=== PATIENT | male | born 1940 | race Asian ===

== ENCOUNTER 2024-01-06 12:20 | Inpatient (IN) | payer MEDICAID ==
[2024-01-06] VITALS (8 sets, daily range): BP systolic 104–152; PULSE 90–122; RESP 16–30; TEMP 97.8–99.1; O2SAT 94–100
[~2024-01-06] VITALS: Ht 165.1 cm; Wt 64.0 kg
[2024-01-06 13:29] LABS: BASOPHILS # (AUTO) 0.1 K/uL (0.0-0.2); BASOPHILS % (AUTO) 0.6 % (0.0-2.0); EOSINOPHILS # (AUTO) 0.1 K/uL (0.0-0.4); EOSINOPHILS % (AUTO) 1.3 % (0.0-4.0); HEMATOCRIT 35.4 % (36-54); HEMOGLOBIN 12.2 g/dL (14.0-18.0); LYMPHOCYTES # (AUTO) 0.9 K/uL (1.0-5.5); LYMPHOCYTES % (AUTO) 9.7 % (20.5-51.5); MEAN CORPUSCULAR HEMOGLOBIN 30 pg (27-31); MEAN CORPUSCULAR HGB CONC 35 % (32-36); MEAN CORPUSCULAR VOLUME 87 fL (79.0-98.0); MONOCYTES # (AUTO) 0.9 K/uL (0.0-1.0); MONOCYTES % (AUTO) 9.6 % (1.7-9.3); NEUTROPHILS # (AUTO) 7.1 K/uL (1.8-7.7); NEUTROPHILS % (AUTO) 78.8 % (40.0-70.0); PLATELET COUNT (AUTO) 245 K/uL (130-430); RED BLOOD CELL COUNT(AUTO) 4.08 MIL/uL (4.2-6.2); RED CELL DISTRIBUTION WIDTH 13.8 % (9.0-15.0)
[2024-01-06 13:45] LABS: ANION GAP 8 (5-15); CARBON DIOXIDE 26 mmol/L (23-29); CHLORIDE 93 mmol/L (98-107); CREATININE 1.25 mg/dL (0.55-1.30); GLUCOSE 221 mg/dL (74-106); POTASSIUM 4.5 mmol/L (3.5-5.1); SODIUM SERUM 127 mmol/L (136-145); UREA NITROGEN, BLOOD 14 mg/dL (8-21)
[2024-01-06] MEDS ORDERED: NACL 0.9% 1,000 ML IV ONE (13:45)
[2024-01-06] MEDS: ACETAMINOPHEN 325 MG TABLET PO ONE (13:45)
[2024-01-06 13:56] LABS: BILIRUBIN,DIRECT 0.2 mg/dL (0.0-0.3); TOTAL BILIRUBIN 0.6 mg/dL (0.0-1.0); TOTAL PROTEIN, SERUM 7.5 g/dL (6.4-8.3)
[2024-01-06] MEDS ORDERED: HEPARIN 25,000 UNITS/D5W 250ML 250 ML IV ONE (14:15)
[2024-01-06] MEDS ORDERED: HEPARIN SODIUM,PORCINE 2000 UNITS/0.4 ML BOLUS IVP PRN (15:00)
[2024-01-06] MEDS ORDERED: HEPARIN SODIUM,PORCINE 3000 UNITS/0.6 ML BOLUS IVP PRN (15:00)
[2024-01-06] MEDS: HEPARIN SODIUM,PORCINE 5,000 UNITS/ML VIAL IVP ONE (15:36)
[2024-01-06] MEDS: HEPARIN 25,000 UNITS/D5W 250ML 250 ML IV SCH (15:41)
[2024-01-06] MEDS: ASPIRIN 325 MG TABLET PO ONE (15:48)
[2024-01-06] MEDS: CARVEDILOL 3.125 MG TABLET (COREG) PO SCH (20:45)
[2024-01-07] VITALS (23 sets, daily range): BP systolic 89–148; PULSE 75–116; RESP 14–30; TEMP 97.9–98.7; O2SAT 92–98
[2024-01-07 05:11] LABS: ALANINE AMINOTRANSFERASE 23 U/L (12-78); ALBUMIN 2.9 g/dL (3.4-4.8); ANION GAP 6 (5-15); ASPARTATE AMINOTRANSFERASE 36 U/L (10-37); CALCIUM 8.8 mg/dL (8.4-11.0); CARBON DIOXIDE 29 mmol/L (23-29); CHLORIDE 94 mmol/L (98-107); CREATININE 1.14 mg/dL (0.55-1.30); GLUCOSE 173 mg/dL (74-106); POTASSIUM 4.5 mmol/L (3.5-5.1); SODIUM SERUM 129 mmol/L (136-145); TOTAL BILIRUBIN 0.9 mg/dL (0.0-1.0); TOTAL PROTEIN, SERUM 7.6 g/dL (6.4-8.3); UREA NITROGEN, BLOOD 15 mg/dL (8-21)
[2024-01-07 05:19] LABS: BASOPHILS % (AUTO) 0.3 % (0.0-2.0); EOSINOPHILS # (AUTO) 0.3 K/uL (0.0-0.4); EOSINOPHILS % (AUTO) 3.3 % (0.0-4.0); HEMATOCRIT 35.5 % (36-54); HEMOGLOBIN 12.4 g/dL (14.0-18.0); LYMPHOCYTES # (AUTO) 1.2 K/uL (1.0-5.5); LYMPHOCYTES % (AUTO) 13.8 % (20.5-51.5); MEAN CORPUSCULAR HEMOGLOBIN 30 pg (27-31); MEAN CORPUSCULAR HGB CONC 35 % (32-36); MEAN CORPUSCULAR VOLUME 86 fL (79.0-98.0); MONOCYTES # (AUTO) 0.9 K/uL (0.0-1.0); MONOCYTES % (AUTO) 10.5 % (1.7-9.3); NEUTROPHILS # (AUTO) 6.2 K/uL (1.8-7.7); NEUTROPHILS % (AUTO) 72.1 % (40.0-70.0); PLATELET COUNT (AUTO) 230 K/uL (130-430); RED BLOOD CELL COUNT(AUTO) 4.12 MIL/uL (4.2-6.2); WHITE BLOOD COUNT (AUTO) 8.6 K/uL (4.8-10.8)
[2024-01-07 07:52] LABS: CHOLESTEROL 201 mg/dL (<200); HDL CHOLESTEROL 45 mg/dL (>45); TRIGLYCERIDES 123 mg/dL (30-150)
[2024-01-07] MEDS ORDERED: INSULIN ASPART 100 UNITS/ML, 10 ML VIAL (NovoLOG) SUBCUT PRN (08:15)
[2024-01-07] MEDS ORDERED: KETO200T59 PO (08:28)
[2024-01-07] MEDS ORDERED: VIS50 PO (08:28)
[2024-01-07] MEDS ORDERED: TELM40TA7 PO (08:28)
[2024-01-07] MEDS ORDERED: METF-379 PO (08:28)
[2024-01-07] MEDS ORDERED: D5W 1,000 ML IV PRN (08:45)
[2024-01-07] MEDS ORDERED: DEXTROSE 50%-WATER 50 ML DISP.SYRIN IVP PRN (08:45)
[2024-01-07] MEDS ORDERED: GLUCOSE (DEXTROSE) ORAL GEL -Adults PO PRN (08:45)
[2024-01-07] MEDS: LOSARTAN POTASSIUM 50 MG TABLET (COZAAR) PO SCH ×2 (09:00→09:51)
[2024-01-07] MEDS: ASPIRIN 81 MG TAB.CHEW PO SCH (09:48)
[2024-01-07] MEDS: metFORMIN HCL 500 MG TABLET PO SCH (09:50)
[2024-01-07] MEDS: ATORVASTATIN 20 MG TABLET PO SCH (09:54)
[2024-01-07] MEDS: CARVEDILOL 6.25 MG TABLET (COREG) PO SCH (09:58)
[2024-01-07] MEDS: FUROSEMIDE 20 MG/2 ML VIAL IVP SCH (09:59)
[2024-01-07 10:52] LABS: BILIRUBIN,URINE NEGATIVE (NEGATIVE); CLARITY/URINE CLEAR (CLEAR); COLOR,URINE YELLOW (YELLOW); GLUCOSE,URINE 3+ (NEGATIVE); KETONES,URINE TRACE (NEGATIVE); LEUKOCYTE ESTERASE ,URINE NEGATIVE (NEGATIVE); NITRITE, URINE NEGATIVE (NEGATIVE); PH,URINE 6.5 (5.0-8.0); PROTEIN URINE NEGATIVE (NEGATIVE); UROBILINOGEN,URINE 0.2 (0.2-1.0)
[2024-01-07 10:53] LABS: BLOOD, URINE TRACE (NEGATIVE)
[2024-01-07] MEDS: cefTRIAXone 1 GM in D5W 50 ML IV SCH (10:57)
[2024-01-07 11:19] LABS: BACTERIA,URINE None Seen /HPF (None Seen); RBC,URINE 0-3 /HPF (0-3); WBC,URINE NONE SEEN /HPF (0-3)
[2024-01-07] MEDS: *HEPARIN PER PHARMACY XX PRN (13:29)
[2024-01-07] MEDS: INSULIN LISPRO SLIDING SCALE 100 UNITS/ML, 3 ML VIAL (humaLOG) SUBCUT PRN (13:39)
[2024-01-07] MEDS: LORATADINE 10 MG TABLET PO ONE (16:24)
[2024-01-07] MEDS: TRIAMCINOLONE ACETONIDE 0.025% 15 GM CREAM.GM. TP ONE (16:31)
[2024-01-07] MEDS: LORATADINE 10 MG TABLET ONE (16:34)
[2024-01-07] MEDS: TRIAMCINOLONE ACETONIDE 0.025% 15 GM CREAM.GM. TP SCH (20:53)
[2024-01-08] VITALS (24 sets, daily range): BP systolic 100–150; PULSE 74–96; RESP 13–22; TEMP 97.8–98.3; O2SAT 2–100
[2024-01-08 06:17] LABS: BASOPHILS % (AUTO) 0.3 % (0.0-2.0); EOSINOPHILS # (AUTO) 0.3 K/uL (0.0-0.4); EOSINOPHILS % (AUTO) 4.2 % (0.0-4.0); HEMATOCRIT 34.6 % (36-54); HEMOGLOBIN 12.4 g/dL (14.0-18.0); LYMPHOCYTES # (AUTO) 1.1 K/uL (1.0-5.5); LYMPHOCYTES % (AUTO) 15.5 % (20.5-51.5); MEAN CORPUSCULAR HEMOGLOBIN 31 pg (27-31); MEAN CORPUSCULAR HGB CONC 36 % (32-36); MEAN CORPUSCULAR VOLUME 86 fL (79.0-98.0); MONOCYTES # (AUTO) 0.7 K/uL (0.0-1.0); NEUTROPHILS # (AUTO) 4.9 K/uL (1.8-7.7); PLATELET COUNT (AUTO) 237 K/uL (130-430); RED BLOOD CELL COUNT(AUTO) 4.01 MIL/uL (4.2-6.2); RED CELL DISTRIBUTION WIDTH 13.7 % (9.0-15.0); WHITE BLOOD COUNT (AUTO) 7.1 K/uL (4.8-10.8)
[2024-01-08 06:25] LABS: ALANINE AMINOTRANSFERASE 19 U/L (12-78); ALBUMIN 2.8 g/dL (3.4-4.8); ANION GAP 10 (5-15); ASPARTATE AMINOTRANSFERASE 32 U/L (10-37); CALCIUM 8.3 mg/dL (8.4-11.0); CARBON DIOXIDE 26 mmol/L (23-29); CHLORIDE 89 mmol/L (98-107); CREATININE 1.35 mg/dL (0.55-1.30); GLUCOSE 149 mg/dL (74-106); POTASSIUM 3.7 mmol/L (3.5-5.1); SODIUM SERUM 125 mmol/L (136-145); TOTAL PROTEIN, SERUM 7.8 g/dL (6.4-8.3); UREA NITROGEN, BLOOD 20 mg/dL (8-21)
[2024-01-08] MEDS: LORATADINE 10 MG TABLET PO SCH (09:11)
[2024-01-08] MEDS: CLOPIDOGREL BISULFATE 75 MG TABLET PO ONE (09:23)
[2024-01-08] MEDS: FUROSEMIDE 20 MG TABLET PO SCH (09:24)
[2024-01-09] VITALS (15 sets, daily range): BP systolic 104–141; PULSE 75–93; RESP 11–22; TEMP 96.9–98; O2SAT 91–99
[2024-01-09 06:41] LABS: BASOPHILS % (AUTO) 0.4 % (0.0-2.0); EOSINOPHILS # (AUTO) 0.3 K/uL (0.0-0.4); EOSINOPHILS % (AUTO) 5.1 % (0.0-4.0); HEMATOCRIT 34.9 % (36-54); HEMOGLOBIN 12.4 g/dL (14.0-18.0); LYMPHOCYTES # (AUTO) 0.9 K/uL (1.0-5.5); LYMPHOCYTES % (AUTO) 13.9 % (20.5-51.5); MEAN CORPUSCULAR HEMOGLOBIN 30 pg (27-31); MEAN CORPUSCULAR HGB CONC 35 % (32-36); MEAN CORPUSCULAR VOLUME 86 fL (79.0-98.0); MONOCYTES # (AUTO) 0.7 K/uL (0.0-1.0); MONOCYTES % (AUTO) 11.3 % (1.7-9.3); NEUTROPHILS # (AUTO) 4.4 K/uL (1.8-7.7); NEUTROPHILS % (AUTO) 69.3 % (40.0-70.0); PLATELET COUNT (AUTO) 260 K/uL (130-430); RED BLOOD CELL COUNT(AUTO) 4.06 MIL/uL (4.2-6.2); RED CELL DISTRIBUTION WIDTH 13.7 % (9.0-15.0); WHITE BLOOD COUNT (AUTO) 6.4 K/uL (4.8-10.8)
[2024-01-09 06:46] LABS: ANION GAP 8 (5-15); CALCIUM 8.6 mg/dL (8.4-11.0); CARBON DIOXIDE 28 mmol/L (23-29); CHLORIDE 90 mmol/L (98-107); CREATININE 1.16 mg/dL (0.55-1.30); GLUCOSE 148 mg/dL (74-106); SODIUM SERUM 126 mmol/L (136-145); UREA NITROGEN, BLOOD 19 mg/dL (8-21)
[2024-01-09 07:06] LABS: ALANINE AMINOTRANSFERASE 21 U/L (12-78); ALBUMIN 2.7 g/dL (3.4-4.8); ASPARTATE AMINOTRANSFERASE 31 U/L (10-37); TOTAL BILIRUBIN 0.7 mg/dL (0.0-1.0); TOTAL PROTEIN, SERUM 7.7 g/dL (6.4-8.3)
[2024-01-09] MEDS ORDERED: DOCUSATE SODIUM 100 MG CAPSULE PO PRN (09:15)
[2024-01-09] MEDS: CLOPIDOGREL BISULFATE 75 MG TABLET PO SCH (09:28)
[2024-01-09] MEDS: DOCUSATE SODIUM 100 MG CAPSULE PO ONE (09:31)
[2024-01-09] MEDS: MILK OF MAGNESIA 30 ML UDC ONE (09:32)
[2024-01-09] MEDS: MILK OF MAGNESIA 30 ML UDC PO ONE (09:33)
[2024-01-09] MEDS: CLOTRIMAZOLE/BETAMET DIPROP 15 GM TUBE TP SCH (20:15)
[2024-01-10] VITALS (15 sets, daily range): BP systolic 103–160; PULSE 74–97; RESP 11–20; TEMP 97.2–98.2; O2SAT 93–98
[2024-01-10 04:17] LABS: BASOPHILS % (AUTO) 0.4 % (0.0-2.0); EOSINOPHILS # (AUTO) 0.3 K/uL (0.0-0.4); EOSINOPHILS % (AUTO) 5.3 % (0.0-4.0); HEMATOCRIT 33.7 % (36-54); HEMOGLOBIN 11.8 g/dL (14.0-18.0); LYMPHOCYTES # (AUTO) 0.9 K/uL (1.0-5.5); LYMPHOCYTES % (AUTO) 15.3 % (20.5-51.5); MEAN CORPUSCULAR HEMOGLOBIN 30 pg (27-31); MEAN CORPUSCULAR HGB CONC 35 % (32-36); MEAN CORPUSCULAR VOLUME 86 fL (79.0-98.0); MONOCYTES # (AUTO) 0.9 K/uL (0.0-1.0); MONOCYTES % (AUTO) 15.1 % (1.7-9.3); NEUTROPHILS # (AUTO) 3.9 K/uL (1.8-7.7); NEUTROPHILS % (AUTO) 63.9 % (40.0-70.0); PLATELET COUNT (AUTO) 288 K/uL (130-430); RED BLOOD CELL COUNT(AUTO) 3.93 MIL/uL (4.2-6.2); RED CELL DISTRIBUTION WIDTH 14.1 % (9.0-15.0); WHITE BLOOD COUNT (AUTO) 6.1 K/uL (4.8-10.8)
[2024-01-10 04:28] LABS: ANION GAP 8 (5-15); CALCIUM 8.5 mg/dL (8.4-11.0); CARBON DIOXIDE 28 mmol/L (23-29); CHLORIDE 95 mmol/L (98-107); CREATININE 1.13 mg/dL (0.55-1.30); GLUCOSE 157 mg/dL (74-106); POTASSIUM 4.4 mmol/L (3.5-5.1); SODIUM SERUM 131 mmol/L (136-145); UREA NITROGEN, BLOOD 14 mg/dL (8-21)
[2024-01-10] MEDS ORDERED: ASA81 PO (17:16)
[2024-01-10] MEDS ORDERED: LIP40 PO (17:20)
[2024-01-10] MEDS ORDERED: COR6.25 PO (17:20)
[2024-01-10] MEDS ORDERED: CLOP75TA32 PO (17:21)
[2024-01-10] MEDS ORDERED: CLOT15CR5 TP (17:22)
[2024-01-10] MEDS ORDERED: FURO-150 PO (17:25)
[2024-01-10] MEDS ORDERED: LOSA-413 PO (17:26)
[2024-01-10] MEDS ORDERED: LEVO750T64 PO (17:33)
== END 2024-01-10 17:00 | disposition home health service (06) | DRG 190 ==
LOC: SED 12:20 → SIC 15:03
PROVIDERS: ADMIT Internal Medicine; ATTEND Internal Medicine
DX: I21.4 Non-ST elevation (NSTEMI) myocardial infarction (principal); J96.01 Acute respiratory failure with hypoxia; E44.1 Mild protein-calorie malnutrition; E87.1 Hypo-osmolality and hyponatremia; I11.0 Hypertensive heart disease with heart failure; I50.9 Heart failure, unspecified; B35.6 Tinea cruris; E11.9 Type 2 diabetes mellitus without complications; J81.1 Chronic pulmonary edema; E78.5 Hyperlipidemia, unspecified; L08.9 Local infection of the skin and subcutaneous tissue, unspecified; J06.9 Acute upper respiratory infection, unspecified; I25.10 Atherosclerotic heart disease of native coronary artery without angina pectoris; I25.2 Old myocardial infarction; Z79.84 Long term (current) use of oral hypoglycemic drugs; Z79.899 Other long term (current) drug therapy; Z68.23 Body mass index [BMI] 23.0-23.9, adult
CPT/HCPCS: 36415; 71045; 80048; 80053; 80061; 80076; 81000; 81001; 81015; 82948; 83605; 83735; 83880; 84484; 85025; 85730; 87040; 87081; 93005; 93306; 96365; 96375; 97112-GP; 97116-GP; 97163-GP; 97530-GP; 99291; J0696; J1644; J1940; J7060